=== PATIENT | female | born 2000 | race Two or more races ===

== ENCOUNTER → 2024-03-19 | Emergency (ER) | payer OTHER ==
[~2024-03-19] VITALS: Ht 147.3 cm; Wt 54.4 kg
[~2024-03-19] MED LIST: DICLOFENAC SODI75 MG PO; KETOROLAC TROMETHAMINE 30 MG VIAL IV ONE; RISPERDAL0.5 MG
== END | disposition home or self-care (01) ==
LOC: ER 21:24
DX: M12.572 Traumatic arthropathy, left ankle and foot (principal)